=== PATIENT | female | born 1935 | race Caucasian/White ===

== ENCOUNTER 2016-09-04 10:39 | Observation (INO) | payer OTHER, BC ==
[~2016-09-04] VITALS: Ht 152.4 cm; Wt 60.4 kg
[~2016-09-04 10:39] MED LIST: ADULT LOW STREN81 M2 PO; CLINDAMYCIN HC300 MG PO; DICLOFENAC SODI75 MG PO; DIOVAN HCT 1601 EACH PO; EVISTA60 MG PO; LIDODERM 5% P1 PATCH TD; NORVASC5 MG PO; PREMARIN0.625 MG PO; PROTONIX40 MG PO; SYNTHROID88 MCG PO; TRAMADOL HCL50 MG PO; ZOFRAN ODT4 MG PO
[2016-09-04 11:08] LABS: HEMATOCRIT 42.9 % (36.0-46.0); MCH 31.2 PG (29.0-34.0); MCHC 33.3 G/DL (30.0-36.0); MCV 93.5 FL (83-99); MEAN PLAT.VOLUME 8.8 uM^3 (9.5-12.4); PLATELET COUNT 182 K/uL (156-360); RBC DIS.WIDTH-CV 13.3 % (11.8-14.6); RBC DIS.WIDTH-SD 45.5 % (39-53); RED BLOOD COUNT 4.59 M/uL (3.80-5.20); WHITE BLOOD COUNT 6.9 K/uL (4.1-10.2)
[2016-09-04 11:24] LABS: CHLORIDE 102 mEq/L (99-109); POTASSIUM 3.2 mEq/L (3.7-5.4); SODIUM 140 mEq/L (136-147)
[2016-09-04 11:26] LABS: GLUCOSE 93 mg/dL (70-99)
[2016-09-04 11:27] LABS: ANION GAP 14 MEQ/L (2-14)
[2016-09-04 11:30] LABS: GFR ESTIMATE (CALCULATED) 57 mL/min/
[2016-09-04 11:31] LABS: UREA NITROGEN (BUN) 19 mg/dL (9-23)
[2016-09-04 11:34] LABS: TROP-I INTERPRETATION NEGATIVE; TROPONIN-I < 0.01 ng/mL (0.0-0.30)
[2016-09-04] MEDS ORDERED: LO-DOSE ASPIRIN81 M2 PO (13:35)
[2016-09-04] MEDS ORDERED: ACTONEL150 MG PO (13:36)
[2016-09-04] MEDS ORDERED: DIOVAN HCT 31 TABLET PO (13:36)
[2016-09-04] MEDS ORDERED: ATIVAN0.5 MG PO (13:37)
[2016-09-04] MEDS ORDERED: CENTRUM COMPLE1 EACH PO (13:38)
[2016-09-04] MEDS ORDERED: CALCIUM 500 +1 EAC5 PO (13:38)
[2016-09-04] MEDS ORDERED: ZOLOFT50 MG PO (13:38)
[2016-09-04] MEDS ORDERED: VITAMIN C1000 MG PO (13:39)
[2016-09-04] MEDS ORDERED: VITAMIN D31000 UNIT PO (13:39)
[2016-09-04] MEDS ORDERED: RED YEAST RICE600 MG PO (13:39)
[2016-09-04] MEDS ORDERED: MIRALAX17 GM PO (13:39)
[2016-09-04] MEDS ORDERED: SENOKOT S,PE1 TABLET PO (13:40)
[2016-09-04 17:06] VITALS: BP 180/83
[2016-09-04 18:35] LABS: TROP-I INTERPRETATION NEGATIVE; TROPONIN-I < 0.01 ng/mL (0.0-0.30)
[2016-09-04 18:52] VITALS: BP 183/90
[2016-09-05 00:30] VITALS: BP 166/74
[2016-09-05 01:13] LABS: TROP-I INTERPRETATION NEGATIVE; TROPONIN-I < 0.01 ng/mL (0.0-0.30)
[2016-09-05 04:57] VITALS: BP 146/67
[2016-09-05 07:59] VITALS: BP 157/75
[2016-09-05 11:29] LABS: ANION GAP 9 MEQ/L (2-14); CHLORIDE 105 MEQ/L (99-109); GFR ESTIMATE (CALCULATED) > 59 mL/min/; GLUCOSE 81 mg/dL (70-99); SAMPLE HEMOLYSIS CHECK 0; SAMPLE ICTERIC CHECK 0; SAMPLE LIPEMIA CHECK 0; SODIUM 139 MEQ/L (136-147); UREA NITROGEN (BUN) 16 mg/dL (9-23)
[2016-09-05 11:31] LABS: POTASSIUM 4.2 MEQ/L (3.7-5.4)
== END 2016-09-05 10:10 | disposition home or self-care (01) ==
LOC: EME 10:39 → EDOF 15:15 → 5WEST 15:15 → EDOF 15:15 → 5WEST 16:41
PROVIDERS: Hospitalist; Nurse Practitioner Adult Health
DX: R07.9 Chest pain, unspecified (principal); E87.6 Hypokalemia; I10 Essential (primary) hypertension; K21.9 Gastro-esophageal reflux disease without esophagitis; E03.9 Hypothyroidism, unspecified; F32.9 Major depressive disorder, single episode, unspecified; F41.9 Anxiety disorder, unspecified; E78.5 Hyperlipidemia, unspecified; M81.0 Age-related osteoporosis without current pathological fracture; K08.89 Other specified disorders of teeth and supporting structures
CPT/HCPCS: 71020; 71275; 80048; 84484; 85027; 93005; 99281; 99285; G0378

== ENCOUNTER 2017-10-02 14:15 | Emergency (ER) | payer OTHER, BC ==
[~2017-10-02] VITALS: Ht 152.4 cm; Wt 66.6 kg
[~2017-10-02 14:15] MED LIST changes: +ACTONEL150 MG PO; +ATIVAN0.5 MG PO; +CALCIUM 500 +1 EAC5 PO; +CENTRUM COMPLE1 EACH PO; +DIOVAN HCT 31 TABLET PO; +LO-DOSE ASPIRIN81 M2 PO; +MIRALAX17 GM PO; +RED YEAST RICE600 MG PO; +SENOKOT S,PE1 TABLET PO; +VITAMIN C1000 MG PO; +VITAMIN D31000 UNIT PO; +ZOLOFT50 MG PO
[2017-10-02 14:59] LABS: HEMATOCRIT 37.4 % (36.0-46.0); MCH 32.1 PG (29.0-34.0); MCHC 34.8 G/DL (30.0-36.0); MCV 92.3 FL (83-99); PLATELET COUNT 216 K/uL (156-360); RBC DIS.WIDTH-CV 14.3 % (11.8-14.6); RBC DIS.WIDTH-SD 48.9 % (39-53); RED BLOOD COUNT 4.05 M/uL (3.80-5.20); WHITE BLOOD COUNT 9.5 K/uL (4.1-10.2)
[2017-10-02 15:26] LABS: ALBUMIN 4.4 g/dL (3.2-4.8); CHLORIDE 102 mEq/L (99-109); POTASSIUM 4.4 mEq/L (3.7-5.4); SODIUM 139 mEq/L (136-147)
[2017-10-02 15:27] LABS: GLUCOSE 96 mg/dL (70-99); TOTAL PROTEIN 6.9 g/dL (6.4-8.3)
[2017-10-02 15:29] LABS: TOTAL BILIRUBIN 0.5 mg/dL (0.0-1.0)
[2017-10-02 15:30] LABS: ALKALINE PHOSPHATASE 46 IU/L (3-129)
[2017-10-02 15:31] LABS: GFR ESTIMATE (CALCULATED) 57 mL/min/
[2017-10-02 15:32] LABS: AST (GOT) 26 IU/L (2-34); UREA NITROGEN (BUN) 22 mg/dL (9-23)
[2017-10-02 15:34] LABS: ALT (GPT) 19 IU/L (3-49)
[2017-10-02 15:38] LABS: LIPASE 23 U/L (1.0-51.0)
[2017-10-02 18:08] LABS: APPEARANCE SL.HAZY ((CLEAR)); BILIRUBIN NEGATIVE; BLOOD NEGATIVE; GLUCOSE (STRIP) NEGATIVE; KETONES 5; LEUKOCYTES NEGATIVE; NITRITE NEGATIVE; PROTEIN (STRIP) NEGATIVE; SPECIFIC GRAVITY 1.013 (1.000-1.030); UROBILINOGEN 0.2 MG/DL (0.2-1.0)
[2017-10-02 18:13] LABS: COLOR YELLOW ((YELLOW))
[2017-10-02] MEDS ORDERED: ZOFRAN ODT4 MG PO (18:16)
[2017-10-02] MEDS ORDERED: BENTYL10 MG PO (18:16)
[2017-10-02 18:32] LABS: BACTERIA NONE SEEN /HPF; EPITHELIAL CELLS RARE /HPF; HYALINE CASTS 0-5 /LPF; MUCUS TRACE /LPF; RED BLOOD CELLS 0-5 /HPF (0-5); UCUL ADDED? NO; WHITE BLOOD CELLS 0-5 /HPF (0-5)
[2017-10-02 18:41] VITALS: BP 180/76
== END 2017-10-02 18:42 | disposition home or self-care (01) ==
LOC: EME 14:15
DX: R10.30 Lower abdominal pain, unspecified (principal); R11.0 Nausea; I10 Essential (primary) hypertension; Z87.442 Personal history of urinary calculi; K21.9 Gastro-esophageal reflux disease without esophagitis; F41.9 Anxiety disorder, unspecified; E03.9 Hypothyroidism, unspecified; Z85.3 Personal history of malignant neoplasm of breast; Z79.82 Long term (current) use of aspirin; Z88.2 Allergy status to sulfonamides; Z88.1 Allergy status to other antibiotic agents; Z88.0 Allergy status to penicillin
CPT/HCPCS: 74177; 80053; 81003; 83690; 85027; 99281; 99285; J7030